=== PATIENT | male | born 1985 | race Caucasian/White ===

== ENCOUNTER 2018-02-06 11:50 | Emergency (ER) | payer OTHER ==
[2018-02-06 12:24] LABS: Absolute Monocytes 0.7 K/uL (0.1-1.3); Absolute Neutrophil 5.1 K/uL (1.8-8.0); Basophils % 0.7 % (0-1.3); Eosinophils % 0.9 % (0-4.4); Hematocrit 54.3 % (39.6-49.0); Lymphocytes % 25.8 % (15.3-44.8); MCH 29.8 pg (27.0-35.0); MPV 7.2 fL (7.6-11.3); Monocytes % 8.8 % (3.3-12.3); RBC Red Blood Cell Count 6.24 M/uL (4.33-5.43)
[2018-02-06] MEDS ORDERED: TAMSULOSIN 0.4 MG SR CAP ONE (12:25)
[2018-02-06] MEDS ORDERED: ONDANSETRON 4 MG/2 ML VIAL ONE (12:25)
[2018-02-06] MEDS ORDERED: KETOROLAC 30 MG/ML INJ ONE (12:25)
[2018-02-06] MEDS ORDERED: HYDROMORPHONE HCL 1 MG/ML INJ ONE (12:25)
[2018-02-06] MEDS ORDERED: NA CHLORIDE 0.9% 1,000 ML ONE ×2 (12:26→12:52)
[2018-02-06] MEDS ORDERED: CEFTRIAXONE/SWI 1gm 1 GM/10 ML SYR ONE (12:26)
--- NOTE | 2018-02-06 12:39 | RAD REPORT ---
EXAM DESCRIPTION: CT - Stone Protocol - 02/06/2018 12:30 pm CLINICAL HISTORY: Flank pain. Abd pain;Flank pain COMPARISON: Stone Protocol dated 06/27/2016 TECHNIQUE: Axial images were obtained without oral or IV contrast. Lack of contrast limits solid org an and vascular assessment. The [id number] spans the entirety of the system partially obscuring uppermost abdomen and lung bases. Coronal reformatted images were obtained and reviewed. All CT scans are performed using dose optimization technique as appropriate and may include automated exposure control or mA/KV adjustment according to patient size. FINDINGS: The lower lung mcbride are clear. Imaged portions of the liver and spleen show no suspicious findings on non-contrast imaging. The panc reas and adrenal glands are normal. No pathologic lymphadenopathy in the abdomen or pelvis. 4 mm stone is present mid left ureter resulting in mild left hydronephrosis. Punctate bilateral nephr olithiasis is present. No bowel obstruction, free air, free fluid or abscess. Appendectomy. 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 IMPRESSION: 4 mm stone mid left ureter resulting in mild left hydronephrosis. Punctate bilateral nephrolithiasis.
[2018-02-06] MEDS ORDERED: MEPERIDINE HCL 50 MG/ML AMP ONE (12:43)
[2018-02-06 12:46] LABS: Albumin 4.2 g/dL (3.4-5.0); Bilirubin Direct 0.3 mg/dL (0-0.2); Bilirubin Total 1.1 mg/dL (0.2-1.0); Potassium 4.1 mmol/L (3.5-5.1); Protein, Total 8.1 g/dL (6.4-8.2)
[2018-02-06] MEDS ORDERED: CIPROFLOXACIN 400mg IV 400 MG/200 ML BAG IV ONE (12:52)
[2018-02-06] MEDS ORDERED: MEPERIDINE HCL 25 MG/0.5 ML ONE (13:35)
--- NOTE | 2018-02-06 14:06 | EDPHYS ---
Physician Documentation [facility] Name: Jerry Toney Age: 33 yrs Sex: Male : 1985 Arrival Date: 02/06/2018 Time: 11:53 Bed 23 Private MD: ED Physician Maximino Alonso HPI: 02/06 12:00 This 33 yrs old Male presents to ER via Ambulatory with complaints of flank octaviano pain. 12:00 The patient complains of pain in the left mid back and right mid back. Location: left octaviano mid back and right mid back. Onset: The symptoms/episode began/occurred just prior to arrival, this morning. Modifying factors: The symptoms are alleviated by nothing. the symptoms are aggravated by nothing. The patient presents with pain and tenderness. The symptoms are located in the mid back area and left mid back. Associated signs and symptoms: Pertinent positives: nausea, vomiting. The problem was sustained from unknown cause. Modifying factors: The patient symptoms are alleviated by nothing, the patient symptoms are aggravated by nothing. Associated signs and symptoms: The patient has no apparent associated signs or symptoms. The patient has experienced similar episodes in the past, multiple times. Historical: - Allergies: 13:19 PENICILLINS; aj1 - PMHx: 13:19 Kidney stones; aj1 - Immunization history:: Adult Immunizations up to date. - Family history:: not pertinent. - Ebola Screening: : Patient denies travel to an Ebola-affected area in the 21 days before illness onset. ROS: 12:00 Constitutional: Negative for fever, chills, and weight loss, Eyes: Negative for injury, octaviano pain, redness, and discharge, ENT: Negative for injury, pain, and discharge, Neck: Negative for injury, pain, and swelling, Cardiovascular: Negative for chest pain, palpitations, and edema, Respiratory: Negative for shortness of breath, cough, wheezing, and pleuritic chest pain, Abdomen/GI: Negative for abdominal pain, nausea, vomiting, diarrhea, and constipation, : Negative for injury, bleeding, discharge, and swelling, MS/Extremity: Negative for injury and deformity, Skin: Negative for injury, rash, and discoloration, Neuro: Negative for headache, weakness, numbness, tingling, and seizure, Psych: Negative for depression, anxiety, suicide ideation, homicidal ideation, and hallucinations, Allergy/Immunology: Negative for hives, rash, and allergies, Endocrine: Negative for neck swelling, polydipsia, polyuria, polyphagia, and marked weight changes, Hematologic/Lymphatic: Negative for swollen nodes, abnormal bleeding, and unusual bruising. 12:00 Back: Positive for pain at rest, flank pain, bilaterally. Exam: 12:00 Constitutional: This is a well developed, well nourished patient who is awake, alert, octaviano and in no acute distress. Head/Face: Normocephalic, atraumatic. Eyes: Pupils equal round and reactive to light, extra-ocular motions intact. Lids and lashes normal. Conjunctiva and sclera are non-icteric and not injected. Cornea within normal limits. Periorbital areas with no swelling, redness, or edema. ENT: Nares patent. No nasal discharge, no septal abnormalities noted. Tympanic membranes are normal and external auditory canals are clear. Oropharynx with no redness, swelling, or masses, exudates, or evidence of obstruction, uvula midline. Mucous membranes moist. Neck: Trachea midline, no thyromegaly or masses palpated, and no cervical lymphadenopathy. Supple, full range of motion without nuchal rigidity, or vertebral point tenderness. No Meningismus. Chest/axilla: Normal chest wall appearance and motion. Nontender with no deformity. No lesions are appreciated. Cardiovascular: Regular rate and rhythm with a normal S1 and S2. No gallops, murmurs, or rubs. Normal PMI, no JVD. No pulse deficits. Respiratory: Lungs have equal breath sounds bilaterally, clear to auscultation and percussion. No rales, rhonchi or wheezes noted. No increased work of breathing, no retractions or nasal flaring. Abdomen/GI: Soft, non-tender, with normal bowel sounds. No distension or tympany. No guarding or rebound. No evidence of tenderness throughout. Skin: Warm, dry with normal turgor. Normal color with no rashes, no lesions, and no evidence of cellulitis. MS/ Extremity: Pulses equal, no cyanosis. Neurovascular intact. Full, normal range of motion. Neuro: Awake and alert, GCS 15, oriented to person, place, time, and situation. Cranial nerves II-XII grossly intact. Motor strength 5/5 in all extremities. Sensory grossly intact. Cerebellar exam normal. Normal gait. Psych: Awake, alert, with orientation to person, place and time. Behavior, mood, and affect are within normal limits. 12:00 Back: pain, that is mild, that is moderate, of the left mid back and right mid back, ROM is normal, normal spinal alignment noted, CVA tenderness, that is moderate, is noted bilaterally. Vital Signs: 12:35 BP 150 / 89; Pulse 66; Resp 22; Pulse Ox 97% on R/A; aj1 13:30 BP 167 / 89; Pulse 67; Resp 22; Pulse Ox 97% on R/A; aj1 13:56 BP 131 / 87; Pulse 64; Resp 18; Pulse Ox 96% on R/A; aj1 MDM: 11:56 Patient medically screened. [facility] 12:03 Data reviewed: vital signs, nurses notes, lab test result(s), radiologic studies, CT octaviaon scan. 02/06 11:59 Order name: Basic Metabolic Panel; Complete Time: 13:27 [facility] 02/06 11:59 Order name: CBC with Diff; Complete Time: 12:42 [facility] 02/06 11:59 Order name: Creatinine for Radiology; Complete Time: 13:27 [facility] 02/06 11:59 Order name: Hepatic Function; Complete Time: 13:27 [facility] 02/06 11:59 Order name: Lipase; Complete Time: 13:27 [facility] 02/06 11:59 Order name: CT Stone Protocol; Complete Time: 12:42 [facility] 02/06 11:59 Order name: IV Saline Lock; Complete Time: 12:11 [facility] 02/06 11:59 Order name: Labs collected and sent; Complete Time: 12:11 [facility] Administered Medications: 12:25 Drug: TORadol 30 mg Route: IVP; Site: right antecubital; iw 12:35 Follow up: Response: No adverse reaction; Pain is unchanged, physician notified aj1 12:25 Drug: Dilaudid 1 mg Route: IVP; Site: right antecubital; iw 12:35 Follow up: Response: No adverse reaction; Pain is unchanged, physician notified aj1 12:25 Drug: Zofran 4 mg Route: IVP; Site: right antecubital; iw 12:35 Follow up: Response: No adverse reaction aj1 12:35 Drug: NS 0.9% 1000 ml Route: IV; Rate: 1 bolus; Site: right antecubital; aj1 14:30 Follow up: IV Status: Completed infusion; IV Intake: 1000ml aj1 12:40 Drug: Flomax 0.4 mg Route: PO; aj1 13:54 Follow up: Response: No adverse reaction aj1 12:40 Drug: Demerol 50 mg Route: IVP; Site: right antecubital; aj1 12:54 Follow up: Response: No adverse reaction; Pain is decreased aj1 12:42 Not Given (Duplicate Order): Rocephin - (cefTRIAXone) 1 grams IVPB once over 30 mins; octaviano (mix in 50 mL NS) 12:45 Drug: Cipro 400 mg Volume: 200 ml; Route: IVPB; Infused Over: 60 mins; Site: right aj1 antecubital; 13:54 Follow up: Response: No adverse reaction; IV Status: Completed infusion; IV Intake: aj1 200ml 12:45 Drug: NS 0.9% 1000 ml Route: IV; Rate: 1 bolus; Site: right antecubital; aj1 14:30 Follow up: IV Status: Completed infusion; IV Intake: 1000ml aj1 13:31 Drug: Demerol 25 mg Route: IVP; Site: right antecubital; aj1 13:54 Follow up: Response: No adverse reaction; Pain is decreased aj1 Disposition: 02/06/18 14:05 Discharged to Home. Impression: Hydronephrosis with renal and ureteral calculous obstruction - 4 mm left mid ureter calculi. - Condition is Stable. - Discharge Instructions: Kidney Stones, Kidney Stones, [id number], Hydronephrosis, Dietary Guidelines to Help Prevent Kidney Stones. - Prescriptions for Tylenol- Codeine #3 300-30 mg Oral Tablet - take 2 tablet by ORAL route every 6 hours As needed; 30 tablet. Zofran 4 mg Oral Tablet - take 1 tablet by ORAL route every 12 hours As needed; 20 tablet. Flomax 0.4 mg Oral Capsule, Sust. Release 24 hr - take 1 capsule by ORAL route once daily 1/2 hour following the same meal each day; 30 capsule. Cipro 500 mg Oral Tablet - take 1 tablet by ORAL route every 12 hours for 7 days; 14 tablet. - Medication Reconciliation Form, Thank You Letter, Antibiotic Education, Prescription Opioid Use form. - Follow up: Private Physician; When: 2 - 3 days; Reason: Recheck today's complaints, Continuance of care, Re-evaluation by your physician. Follow up: Segundo Burns; When: 2 - 3 days; Reason: Recheck today's complaints, Continuance of care, Re-evaluation by your physician. - Problem is new. - Symptoms have improved. Signatures: Dispatcher [employer] EDPetra Hartman RN RN aj1 Maximino Alonso MD MD cha Williams, Irene, RN RN iw Corrections: (The following items were deleted from the chart) 14:32 14:05 02/06/2018 14:05 Discharged to Home. Impression: Hydronephrosis with renal and aj1 ureteral calculous obstruction - 4 mm left mid ureter calculi. Condition is Stable. Discharge Instructions: Kidney Stones, Kidney Stones, Jaqa-[id number], Hydronephrosis, Dietary Guidelines to Help Prevent Kidney Stones. Prescriptions for Tylenol-Codeine #3 300-30 mg Oral Tablet - take 2 tablet by ORAL route every 6 hours As needed; 30 tablet, Zofran 4 mg Oral Tablet - take 1 tablet by ORAL route every 12 hours As needed; 20 tablet, Flomax 0.4 mg Oral Capsule, Sust. Release 24 hr - take 1 capsule by ORAL route once daily 1/2 hour following the same meal each day; 30 capsule, Cipro 500 mg Oral Tablet - take 1 tablet by ORAL route every 12 hours for 7 days; 14 tablet. and Forms are Medication Reconciliation Form, Thank You Letter, Antibiotic Education, Prescription Opioid Use. Follow up: Private Physician; When: 2 - 3 days; Reason: Recheck today's complaints, Continuance of care, Re-evaluation by your physician. Follow up: Segundo Burns; When: 2 - 3 days; Reason: Recheck today's complaints, Continuance of care, Re-evaluation by your physician. Problem is new. Symptoms have improved. octaviano
--- NOTE | 2018-02-06 14:06 | ER ---
Nurse's Notes [facility] Name: Jerry Toney Age: 33 yrs Sex: Male : 1985 Arrival Date: 02/06/2018 Time: 11:53 Bed 23 Private MD: Diagnosis: Hydronephrosis with renal and ureteral calculous obstruction-4 mm left mid ureter calculi Presentation: 02/06 11:57 Presenting complaint: Patient states: right sided flank pain. Transition of care: iw patient was not received from another setting of care. Onset of symptoms was February 06, 2018. Risk Assessment: Do you want to hurt yourself or someone else? Patient reports no desire to harm self or others. Initial Sepsis Screen: Does the patient meet any 2 criteria? No. Patient's initial sepsis screen is negative. Does the patient have a suspected source of infection? No. Patient's initial sepsis screen is negative. Care prior to arrival: None. 11:57 Method Of Arrival: Ambulatory iw 11:57 Acuity: JOVAN 3 iw Triage Assessment: 12:35 General: Appears uncomfortable. aj1 Historical: - Allergies: 13:19 PENICILLINS; aj1 - PMHx: 13:19 Kidney stones; aj1 - Immunization history:: Adult Immunizations up to date. - Family history:: not pertinent. - Ebola Screening: : Patient denies travel to an Ebola-affected area in the 21 days before illness onset. Screenin:35 Abuse screen: Denies threats or abuse. Denies injuries from another. Nutritional aj1 screening: No deficits noted. Tuberculosis screening: No symptoms or risk factors identified. 14:31 Fall Risk None identified. aj1 Assessment: 12:30 Reassessment: Pt in CT at this time. aj1 12:35 Reassessment: Patient returned to room from CT, restless, pain 10/10. Reports no pain aj1 relief from Dilaudid and Toradol. States that he does not want to take Dilaudid again, that it does not work for him. Notified Dr. Alonso. Order received. 12:35 General: Appears uncomfortable, Behavior is cooperative, restless. Pain: Complains of aj1 pain in mid back area Pain currently is 10 out of 10 on a pain scale. Neuro: Level of Consciousness is awake, alert, obeys commands. Cardiovascular: Patient's skin is warm and dry. Respiratory: Airway is patent Respiratory effort is even, unlabored, Respiratory pattern is regular, symmetrical. GI: No signs and/or symptoms were reported involving the gastrointestinal system. : Reports flank pain, history of kidney stones, states that this feels similar to previous episodes. EENT: No signs and/or symptoms were reported regarding the EENT system. Derm: No signs and/or symptoms reported regarding the dermatologic system. Skin is flushed. Musculoskeletal: No signs and/or symptoms reported regarding the musculoskeletal system. Circulation, motion, and sensation intact. 12:54 Reassessment: Patient states that the pain has started to ease up, is able to lay back aj1 into the bed. 13:30 Reassessment: Patient states that his pain is coming back. Appears restless, aj1 uncomfortable. States that he thinks the stone is moving because his pain has moved a little lower. Notified Dr. Alonso of patient complaint of pain. Order received. 13:52 Reassessment: Patient states that his pain has eased up a little bit, but he is still aj1 hurting. Appears uncomfortable. 14:30 Reassessment: Patient appears in no apparent distress at this time. No changes from aj1 previously documented assessment. Patient and/or family updated on plan of care and expected duration. Pain level reassessed. Patient is alert, oriented x 3, equal unlabored respirations, skin warm/dry/pink. Vital Signs: 12:35 BP 150 / 89; Pulse 66; Resp 22; Pulse Ox 97% on R/A; aj1 13:30 BP 167 / 89; Pulse 67; Resp 22; Pulse Ox 97% on R/A; aj1 13:56 BP 131 / 87; Pulse 64; Resp 18; Pulse Ox 96% on R/A; aj1 ED Course: 11:53 Patient arrived in ED. iw 11:56 Maximino Alonso MD is Attending Physician. octaviano 11:58 Triage completed. iw 12:05 Initial lab(s) drawn, by me, sent to lab. Inserted saline lock: 20 gauge in right jp3 antecubital area, using aseptic technique. Blood collected. 12:10 Basic Metabolic Panel Sent. jp3 12:10 CBC with Diff Sent. jp3 12:10 Creatinine for Radiology Sent. jp3 12:11 Hepatic Function Sent. jp3 12:11 Lipase Sent. jp3 12:11 Bed in low position. Call light in reach. Side rails up X 1. Pulse ox on. NIBP on. jp3 12:28 CT completed. Patient tolerated procedure well. Patient moved to CT via stretcher. sj Patient moved back from CT. 12:29 CT Stone Protocol In Process Unspecified. EDMS 12:30 Report received from Nayeli Meyers RN. aj1 12:35 No provider procedures requiring assistance completed. aj1 12:52 Petra Sigala RN is Primary Nurse. aj1 13:21 Arm band placed on. aj1 14:01 Segundo Burns MD is Referral Physician. octaviano 14:24 IV discontinued, intact, bleeding controlled, No redness/swelling at site. Pressure jp3 dressing applied. 14:31 IV discontinued, as documented above. aj1 Administered Medications: 12:25 Drug: TORadol 30 mg Route: IVP; Site: right antecubital; iw 12:35 Follow up: Response: No adverse reaction; Pain is unchanged, physician notified aj1 12:25 Drug: Dilaudid 1 mg Route: IVP; Site: right antecubital; iw 12:35 Follow up: Response: No adverse reaction; Pain is unchanged, physician notified aj1 12:25 Drug: Zofran 4 mg Route: IVP; Site: right antecubital; iw 12:35 Follow up: Response: No adverse reaction aj1 12:35 Drug: NS 0.9% 1000 ml Route: IV; Rate: 1 bolus; Site: right antecubital; aj1 14:30 Follow up: IV Status: Completed infusion; IV Intake: 1000ml aj1 12:40 Drug: Flomax 0.4 mg Route: PO; aj1 13:54 Follow up: Response: No adverse reaction aj1 12:40 Drug: Demerol 50 mg Route: IVP; Site: right antecubital; aj1 12:54 Follow up: Response: No adverse reaction; Pain is decreased aj1 12:42 Not Given (Duplicate Order): Rocephin - (cefTRIAXone) 1 grams IVPB once over 30 mins; octaviano (mix in 50 mL NS) 12:45 Drug: Cipro 400 mg Volume: 200 ml; Route: IVPB; Infused Over: 60 mins; Site: right aj1 antecubital; 13:54 Follow up: Response: No adverse reaction; IV Status: Completed infusion; IV Intake: aj1 200ml 12:45 Drug: NS 0.9% 1000 ml Route: IV; Rate: 1 bolus; Site: right antecubital; aj1 14:30 Follow up: IV Status: Completed infusion; IV Intake: 1000ml aj1 13:31 Drug: Demerol 25 mg Route: IVP; Site: right antecubital; aj1 13:54 Follow up: Response: No adverse reaction; Pain is decreased aj1 Intake: 13:54 IV: 200ml; Total: 200ml. aj1 14:30 IV: 1000ml; Total: 1200ml. aj1 14:30 IV: 1000ml; Total: 2200ml. aj1 Outcome: 14:05 Discharge ordered by MD. brumfield 14:31 Discharged to home ambulatory. aj1 14:31 Condition: good 14:31 Discharge instructions given to patient, Instructed on discharge instructions, follow up and referral plans. no drinking with medication, no driving heavy equipment, medication usage, Demonstrated understanding of instructions, follow-up care, medications, Prescriptions given X 4. 14:32 Patient left the ED. aj1 Signatures: Dispatcher [employer] EDMS Petra Sigala RN RN Maximino Abdul MD MD cha Jones, Jenelle Baker RN RN iw Pisarski, Jacob jp3
[2018-02-06 14:41] VITALS: BP 131/87; O2SAT 96
== END 2018-02-06 14:32 | disposition home or self-care (01) ==
LOC: ER 11:50
DX: N13.2 Hydronephrosis with renal and ureteral calculous obstruction (principal); Z88.0 Allergy status to penicillin
CPT/HCPCS: 36415; 74176; 76377; 80048; 80076; 83690; 85025; 96361; 96365; 96375; 99284; J0696; J0744; J1170; J2175; J2405; J7030

== ENCOUNTER 2024-05-16 02:05 | Inpatient (IN) | payer BC, OTHER ==
--- OUTSIDE RECORDS SUMMARY | 2024-05-16 02:08 | XMS REPORT | Continuity of Care Document ---
Author Name Unknown Address [address] [place] [address] [address] [place] [address] [facility] thconnect Address [address] [facility] 1 [address] [place] [address] Care Team Providers Care Alodize Machine Helper Name Role Phone Barbara Attending Clinician Becki Jimenez Admitting Clinician Becki schmitz Payers Payer Name Policy Type Policy Number Effective Date Expirati on Date Source [place] [id number] 2021 00:00:00 Problems Condition Name Condition Details Condition Category Status Onset Date Resolution Date Last Treatment Date Treating Clinician Comments Source Pes anserinus bursitis of left knee Pes Anserinus Bursitis of Left Knee Problem Active 1-15 00:00: 00 [facility] Sprain of medial collateral ligament of left knee joint Sprain of Medial Collateral Ligament of Left Knee Joint Problem Active 1-04 00:00: 00 [facility] Allergies, Adverse Reactions, Alerts Allergy Name Allergy Type Status Severity Reaction(s) Onset Date Inactive Date Treating Clinician Comments Source PENICILL INS Allergy to substanc e Active [facility] Social History Smoking Status Start Date Stop Date Source Former Smoker [facility] Medications Ordered Medication Name Filled Medication Name Start Date Stop Date Current Medication? Ordering Clinician Indication Dosage Frequency Signature (SIG) Comments Components Source atorvastati n 10 mg tablet TAKE ONE (1) TABLET(S) BY MOUTH ONCE A DAY. atorvastati n 10 mg tablet TAKE ONE (1) TABLET(S) BY MOUTH ONCE A DAY. No atorvastat in 10 mg tablet TAKE ONE (1) TABLET(S) BY MOUTH ONCE A DAY. [facility] diazepam 10 mg tablet TAKE ONE (1) TABLET(S) BY MOUTH TWICE A DAY NEEDED. diazepam 10 mg tablet TAKE ONE (1) TABLET(S) BY MOUTH TWICE A DAY NEEDED. No diazepam 10 mg tablet TAKE ONE (1) TABLET(S) BY MOUTH TWICE A DAY NEEDED. [facility] folic acid 1 mg tablet TAKE ONE (1) TABLET(S) BY MOUTH DAILY. folic acid 1 mg tablet TAKE ONE (1) TABLET(S) BY MOUTH DAILY. No folic acid 1 mg tablet TAKE ONE (1) TABLET(S) BY MOUTH DAILY. [facility] lisinopril 20 mg-hydrochl orothiazide 12.5 mg tablet TAKE TWO (2) TABLET(S) BY MOUTH ONCE A DAY. lisinopril 20 mg-hydrochl orothiazide 12.5 mg tablet TAKE TWO (2) TABLET(S) BY MOUTH ONCE A DAY. No lisinopril 20 mg-hydroch lorothiazi de 12.5 mg tablet TAKE TWO (2) TABLET(S) BY MOUTH ONCE A DAY. [facility] Mobic 15 mg tablet Take 1 tablet every day by oral route with meal(s). Take 2 tab on first day, then 1 tab daily Mobic 15 mg tablet Take 1 tablet every day by oral route with meal(s). Take 2 tab on first day, then 1 tab daily No 1 Q1D Mobic 15 mg tablet Take 1 tablet every day by oral route with meal(s). Take 2 tab on first day, then 1 tab daily [facility] testosteron e cypionate 200 mg/mL intramuscul ar oil INJECT ONE (1) ML(S) INTO THE MUSCLE ONCE A MONTH. testosteron e cypionate 200 mg/mL intramuscul ar oil INJECT ONE (1) ML(S) INTO THE MUSCLE ONCE A MONTH. No testostero ne cypionate 200 mg/mL intramuscu lar oil INJECT ONE (1) ML(S) INTO THE MUSCLE ONCE A MONTH. [facility] tramadol 50 mg tablet TAKE ONE (1) TABLET(S) BY MOUTH EVERY SIX HOURS NEEDED. tramadol 50 mg tablet TAKE ONE (1) TABLET(S) BY MOUTH EVERY SIX HOURS NEEDED. No tramadol 50 mg tablet TAKE ONE (1) TABLET(S) BY MOUTH EVERY SIX HOURS NEEDED. [facility] acetaminoph en 300 mg-codeine 30 mg tablet Take 1 tablet every 8 hours by oral route with meal(s). acetaminoph en 300 mg-codeine 30 mg tablet Take 1 tablet every 8 hours by oral route with meal(s). No 1 Q8H acetaminop hen 300 mg-codeine 30 mg tablet Take 1 tablet every 8 hours by oral route with meal(s). [facility] atorvastati n 10 mg tablet TAKE ONE (1) TABLET(S) BY MOUTH ONCE A DAY. atorvastati n 10 mg tablet TAKE ONE (1) TABLET(S) BY MOUTH ONCE A DAY. No atorvastat in 10 mg tablet TAKE ONE (1) TABLET(S) BY MOUTH ONCE A DAY. [facility] diazepam 10 mg tablet TAKE ONE (1) TABLET(S) BY MOUTH TWICE A DAY NEEDED. diazepam 10 mg tablet TAKE ONE (1) TABLET(S) BY MOUTH TWICE A DAY NEEDED. No diazepam 10 mg tablet TAKE ONE (1) TABLET(S) BY MOUTH TWICE A DAY NEEDED. [facility] diclofenac sodium 75 mg tablet,[place] yed release TAKE ONE (1) TABLET(S) BY MOUTH TWICE A DAY. diclofenac sodium 75 mg tablet,[place] yed release TAKE ONE (1) TABLET(S) BY MOUTH TWICE A DAY. No diclofenac sodium 75 mg tablet,del ayed release TAKE ONE (1) TABLET(S) BY MOUTH TWICE A DAY. [facility] folic acid 1 mg tablet TAKE ONE (1) TABLET(S) BY MOUTH DAILY. folic acid 1 mg tablet TAKE ONE (1) TABLET(S) BY MOUTH DAILY. No folic acid 1 mg tablet TAKE ONE (1) TABLET(S) BY MOUTH DAILY. [facility] hydrocodone 10 mg-acetamin ophen 325 mg tablet TAKE ONE (1) TABLET(S) BY MOUTH EVERY SIX HOURS NEEDED FOR PAIN. hydrocodone 10 mg-acetamin ophen 325 mg tablet TAKE ONE (1) TABLET(S) BY MOUTH EVERY SIX HOURS NEEDED FOR PAIN. No hydrocodon e 10 mg-acetami nophen 325 mg tablet TAKE ONE (1) TABLET(S) BY MOUTH EVERY SIX HOURS NEEDED FOR PAIN. [facility] lisinopril 20 mg-hydrochl orothiazide 12.5 mg tablet TAKE TWO (2) TABLET(S) BY MOUTH ONCE A DAY. lisinopril 20 mg-hydrochl orothiazide 12.5 mg tablet TAKE TWO (2) TABLET(S) BY MOUTH ONCE A DAY. No lisinopril 20 mg-hydroch lorothiazi de 12.5 mg tablet TAKE TWO (2) TABLET(S) BY MOUTH ONCE A DAY. [facility] meloxicam 15 mg tablet TAKE ONE (1) TABLET(S) BY MOUTH ONCE A DAY WITH MEALS. meloxicam 15 mg tablet TAKE ONE (1) TABLET(S) BY MOUTH ONCE A DAY WITH MEALS. No meloxicam 15 mg tablet TAKE ONE (1) TABLET(S) BY MOUTH ONCE A DAY WITH MEALS. [facility] prednisone 10 mg tablet Take 1 tablet 3 times a day by oral route with meal(s) for 10 days. prednisone 10 mg tablet Take 1 tablet 3 times a day by oral route with meal(s) for 10 days. No 1 TID prednisone 10 mg tablet Take 1 tablet 3 times a day by oral route with meal(s) for 10 days. [facility] testosteron e cypionate 200 mg/mL intramuscul ar oil INJECT ONE (1) ML(S) INTO THE MUSCLE ONCE A MONTH. testosteron e cypionate 200 mg/mL intramuscul ar oil INJECT ONE (1) ML(S) INTO THE MUSCLE ONCE A MONTH. No testostero ne cypionate 200 mg/mL intramuscu lar oil INJECT ONE (1) ML(S) INTO THE MUSCLE ONCE A MONTH. [facility] tramadol 50 mg tablet TAKE ONE (1) TABLET(S) BY MOUTH EVERY SIX HOURS NEEDED. tramadol 50 mg tablet TAKE ONE (1) TABLET(S) BY MOUTH EVERY SIX HOURS NEEDED. No tramadol 50 mg tablet TAKE ONE (1) TABLET(S) BY MOUTH EVERY SIX HOURS NEEDED. [facility] acetaminoph en 300 mg-codeine 30 mg tablet TAKE ONE (1) TABLET(S) BY MOUTH EVERY 8 HOURS WITH MEAL(S). acetaminoph en 300 mg-codeine 30 mg tablet TAKE ONE (1) TABLET(S) BY MOUTH EVERY 8 HOURS WITH MEAL(S). No acetaminop hen 300 mg-codeine 30 mg tablet TAKE ONE (1) TABLET(S) BY MOUTH EVERY 8 HOURS WITH MEAL(S). [facility] atorvastati n 10 mg tablet TAKE ONE (1) TABLET(S) BY MOUTH ONCE A DAY. atorvastati n 10 mg tablet TAKE ONE (1) TABLET(S) BY MOUTH ONCE A DAY. No atorvastat in 10 mg tablet TAKE ONE (1) TABLET(S) BY MOUTH ONCE A DAY. [facility] diazepam 10 mg tablet TAKE ONE (1) TABLET(S) BY MOUTH TWICE A DAY NEEDED. diazepam 10 mg tablet TAKE ONE (1) TABLET(S) BY MOUTH TWICE A DAY NEEDED. No diazepam 10 mg tablet TAKE ONE (1) TABLET(S) BY MOUTH TWICE A DAY NEEDED. [facility] diclofenac sodium 75 mg tablet,[place] yed release TAKE ONE (1) TABLET(S) BY MOUTH TWICE A DAY. diclofenac sodium 75 mg tablet,[place] yed release TAKE ONE (1) TABLET(S) BY MOUTH TWICE A DAY. No diclofenac sodium 75 mg tablet,del ayed release TAKE ONE (1) TABLET(S) BY MOUTH TWICE A DAY. [facility] folic acid 1 mg tablet TAKE ONE (1) TABLET(S) BY MOUTH DAILY. folic acid 1 mg tablet TAKE ONE (1) TABLET(S) BY MOUTH DAILY. No folic acid 1 mg tablet TAKE ONE (1) TABLET(S) BY MOUTH DAILY. [facility] hydrocodone 10 mg-acetamin ophen 325 mg tablet TAKE ONE (1) TABLET(S) BY MOUTH EVERY SIX HOURS NEEDED FOR PAIN. hydrocodone 10 mg-acetamin ophen 325 mg tablet TAKE ONE (1) TABLET(S) BY MOUTH EVERY SIX HOURS NEEDED FOR PAIN. No hydrocodon e 10 mg-acetami nophen 325 mg tablet TAKE ONE (1) TABLET(S) BY MOUTH EVERY SIX HOURS NEEDED FOR PAIN. [facility] lisinopril 20 mg-hydrochl orothiazide 12.5 mg tablet TAKE TWO (2) TABLET(S) BY MOUTH ONCE A DAY. lisinopril 20 mg-hydrochl orothiazide 12.5 mg tablet TAKE TWO (2) TABLET(S) BY MOUTH ONCE A DAY. No lisinopril 20 mg-hydroch lorothiazi de 12.5 mg tablet TAKE TWO (2) TABLET(S) BY MOUTH ONCE A DAY. [facility] meloxicam 15 mg tablet TAKE ONE (1) TABLET(S) BY MOUTH ONCE A DAY WITH MEALS. meloxicam 15 mg tablet TAKE ONE (1) TABLET(S) BY MOUTH ONCE A DAY WITH MEALS. No meloxicam 15 mg tablet TAKE ONE (1) TABLET(S) BY MOUTH ONCE A DAY WITH MEALS. [facility] prednisone 10 mg tablet TAKE ONE (1) TABLET(S) BY MOUTH 3 TIMES A DAY WITH MEAL(S). prednisone 10 mg tablet TAKE ONE (1) TABLET(S) BY MOUTH 3 TIMES A DAY WITH MEAL(S). No prednisone 10 mg tablet TAKE ONE (1) TABLET(S) BY MOUTH 3 TIMES A DAY WITH MEAL(S). [facility] testosteron e cypionate 200 mg/mL intramuscul ar oil INJECT ONE (1) ML(S) INTO THE MUSCLE ONCE A MONTH. testosteron e cypionate 200 mg/mL intramuscul ar oil INJECT ONE (1) ML(S) INTO THE MUSCLE ONCE A MONTH. No testostero ne cypionate 200 mg/mL intramuscu lar oil INJECT ONE (1) ML(S) INTO THE MUSCLE ONCE A MONTH. [facility] tramadol 50 mg tablet TAKE ONE (1) TABLET(S) BY MOUTH EVERY SIX HOURS NEEDED. tramadol 50 mg tablet TAKE ONE (1) TABLET(S) BY MOUTH EVERY SIX HOURS NEEDED. No tramadol 50 mg tablet TAKE ONE (1) TABLET(S) BY MOUTH EVERY SIX HOURS NEEDED. [facility] Procedures Procedure Date / Time Performed Performing Clinicia n Source MR, arthrogram, knee 2023-04-13 00:00:00 [facility] Appendectomy [facility] Hand Surgery [facility] Encounters Start Date/Time End Date/Time Encounter Type Admission Type Attending Clinicians Care Facility Care Department Encounter ID Source 2023-05-05 00:00:00 2023-05-05 00:00:00 Mariano Das MD: [id number] [place] [address] , Ph. [phone] [facility] [place] [facility] [id number] [facility] 2023-05-02 00:00:00 2023-05-02 00:00:00 Outpatient EULOGIO_Graciela Horton [facility] [id number] [facility] 2023-04-25 00:00:00 2023-04-25 00:00:00 Outpatient Suzi Horton [facility] [id number] [facility] 2023-04-24 00:00:00 2023-04-24 00:00:00 Outpatient Suzi Horton [facility] [id number] [facility] 2023-04-24 00:00:00 2023-04-24 00:00:00 Mariano Das MD: [id number] [place] [address] , Ph. [phone] [facility] [place] [facility] [id number] [facility] 2023-04-20 00:00:00 2023-04-20 00:00:00 Outpatient [facility]OG_Graciela Horton [facility] [id number] [facility] 2023-04-13 00:00:00 2023-04-13 00:00:00 Outpatient Suzi Horton [facility] [id number] [facility] 2023-04-13 00:00:00 2023-04-13 00:00:00 Mariano Das MD: [id number] [facility] [place] [address] , Ph. [phone] [facility] [place] [facility] [id number] [facility] 2023-04-12 00:00:00 2023-04-12 00:00:00 Outpatient FOG_Graciela Horton [facility] [id number] [facility] 2023-04-04 00:00:00 2023-04-04 00:00:00 Outpatient [facility]OG_Graciela Horton [facility] [id number] [facility] 2023-03-30 00:00:00 2023-03-30 00:00:00 Outpatient Suzi Horton [facility] [id number] [facility]
[2024-05-16] MEDS ORDERED: HYDROMORPHONE HCL 1 MG/ML INJ ONE (02:09)
[2024-05-16] MEDS ORDERED: ONDANSETRON 4 MG/2 ML VIAL ONE ×4 (02:09→15:22)
[2024-05-16] MEDS ORDERED: FENTANYL CITR 100 MCG/2 ML ONE ×3 (02:34→14:21)
[2024-05-16] MEDS ORDERED: FAMOTIDINE 20 MG/2 ML VIAL IV ONE (02:35)
[2024-05-16 02:46] LABS: Absolute Basophils 0.1 K/uL (0-0.5); Absolute Eosinophils 0.1 K/uL (0-0.5); Absolute Lymphocytes (CBC) 3.1 K/uL (0.7-4.9); Absolute Monocytes 1.1 K/uL (0.1-1.3); Absolute Neutrophil 4.2 K/uL (1.8-8.0); Basophils % 1.2 % (0-1.3); Eosinophils % 0.9 % (0-4.4); Hematocrit 49.1 % (39.6-49.0); Hemoglobin 17.5 g/dL (13.6-17.9); Lymphocytes % 36.2 % (15.3-44.8); MCH 31.2 pg (27.0-35.0); MCHC 35.7 g/dL (32.0-36.0); MCV 87.5 fL (80-100); MPV 7.2 fL (7.6-11.3); Monocytes % 12.6 % (3.3-12.3); Neutrophils % 49.1 % (41.7-73.7); Platelets 274 thou/uL (152-406); RBC Red Blood Cell Count 5.61 M/uL (4.33-5.43)
[2024-05-16 03:08] LABS: PT Prothrombin Time 10.8 SECONDS (9.4-12.5); Protime INR 1.03
[2024-05-16 03:13] LABS: Albumin 4.6 g/dL (3.4-5.0); Albumin/Globulin Ratio 1.2 (1.1-1.8); Anion Gap 9.6 mEq/L (5.0-15.0); Bilirubin Direct 0.3 mg/dL (0-0.2); Bilirubin Indirect, Calculated 0.6 mg/dL (0.2-0.8); Bilirubin Total 0.9 mg/dL (0.2-1.0); Protein, Total 8.6 g/dL (6.4-8.2); Troponin High Sensitivity 5.7 pg/mL (<58.9)
[2024-05-16 03:15] LABS: Potassium 2.6 mEq/L (3.5-5.1)
[2024-05-16] MEDS ORDERED: PROMETHAZINE INJ 25 MG/ML AMP ONE (03:53)
[2024-05-16] MEDS ORDERED: CIPROFLOXACIN 400mg IV 400 MG/200 ML BAG IV ONE (05:31)
[2024-05-16] MEDS ORDERED: METRONIDAZOLE 500mg IVPB 500 MG/100 ML BAG IV ONE ×2 (05:31→14:50)
[2024-05-16] MEDS ORDERED: MORPHINE 4 MG/ML SYR ONE ×3 (05:41→13:47)
--- NOTE | 2024-05-16 05:41 | RAD REPORT ---
EXAM: XR Chest, 1 View CLINICAL HISTORY: The patient is 39 years old and is Male; CHEST PAIN TECHNIQUE: Frontal view of the chest. COMPARISON: No relevant prior studies available. FINDINGS: Lungs: Unremarkable. No consolidation. Pleural space: Unremarkable. No pneumothorax. Heart: Unremarkable. Mediastinum: Unremarkable. Normal mediastinal contour. Bones/joints: No acute findings. IMPRESSION: No acute findings in the chest. Electronically signed by: Maximus Rogers MD 05/16/2024 04:[address] [facility] 8 Due to temporary technical issues with the PACS/[employer] reporting system, reports are being abdirashid d by the in-house radiologist without review as a courtesy to ensure prompt reporting the interpreting radiologist is fully responsible for the content of the report. Transcribed Date/Time: 05/16/2024 5:41 AM
--- NOTE | 2024-05-16 05:51 | RAD REPORT ---
CT CHEST ABDOMEN PELVIS ANGIOGRAPHY WITH IV CONTRAST CLINICAL INDICATIONS: Chest pain COMPARISON: None TECHNIQUE: CT images of the chest, abdomen and pelvis were obtained during arterial phase following a dministration of intravenous contrast. Multiplanar and MIP reformats were provided. Dose lowering techniques such as automated exposure control, iterative reconstruction, and mA and/or kV adjustment for patient size was utilized for this examination. CHEST FINDINGS: LOWER NECK: Unremarkable. AIRWAYS: Trachea and mainstem bronchi are patent. LUNGS/PLEURA: Lungs are clear. No focal air space consolidation. No discrete mass or nodules. No pleu ral effusions or pneumothorax. VASCULATURE: No evidence of pulmonary intraluminal filling defects. Classic three-vessel branching pattern of left aortic arch. No evidence of thoracic aortic aneurysm or dissection. 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 No flow-limiting steno sis for the major branching vessels. MEDIASTINUM/NODES: No pathologic adenopathy. HEART: Normal heart size. No pericardial effusion. CHEST WALL: Unremarkable. BONES: Unremarkable. ABDOMEN/PELVIS FINDINGS: LIVER: Unremarkable. BILIARY: Gallbladder is distended. No radiopaque gallstones. No biliary ductal dilatation. No pericho lecystic fluid. PANCREAS: Unremarkable. SPLEEN: Mildly enlarged, measuring 15.0 cm craniocaudally. ADRENALS: Unremarkable. KIDNEYS/URETERS: 3 mm nonobstructive stone at upper pole of right kidney. 4 mm nonobstructive stone a t lower pole of left kidney. No hydroureteronephrosis. Symmetrical nephrogram without perfusion defect. No suspicious lesion. STOMACH: Unremarkable. BOWEL: Unremarkable. APPENDIX: Probably surgically absent. MESENTERY/PERITONEUM: Unremarkable. RETROPERITONEUM: No adenopathy. URINARY BLADDER: Unremarkable. REPRODUCTIVE: Prostate is mildly enlarged. VASCULAR: No aneurysm or dissection. No flow-limiting stenosis for major branching vessels. ABDOMINAL/PELVIC WALL: Unremarkable. BONES: No acute findings. No compression deformity, nor osteolytic or sclerotic lesion. 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 IMPRESSION: 1. No aortic aneurysm or dissection. 2. No acute inflammatory process in the chest, abdomen and pelvis. 3. Nonobstructive bilateral nephrolithiasis. 4. Mild splenomegaly. Electronically signed by: Lisandra García MD 05/16/2024 04:47 AM [facility] Due to temporary technical issues with the PACS/[employer] reporting system, reports are being abdirashid d by the in-house radiologist without review as a courtesy to ensure prompt reporting the interpreting radiologist is fully responsible for the content of the report. Transcribed Date/Time: 05/16/2024 5:51 AM
--- NOTE | 2024-05-16 05:56 | EDPHYS ---
Physician Documentation [facility] Name: Jerry Toney Age: 39 yrs Sex: Male : 1985 Arrival Date: 05/16/2024 Time: 02:05 Bed 9 Private MD: ED Physician Yobany Garcia HPI: 05/16 02:19 This 39 yrs old Male presents to ER via Wheelchair with complaints of chest pain. rn 02:19 The patient or guardian reports chest pain that is located primarily in the substernal rn area. Onset: 2 hour(s) ago. The pain radiates to The chest pain is described as squeezing. Duration: The patient or guardian reports a single episode. Modifying factors: The symptoms are alleviated by nothing. the symptoms are aggravated by nothing. Severity of pain: At its worst the pain was moderate in the emergency department the pain is unchanged. The patient has not experienced similar symptoms in the past. 02:19 Patient reports substernal chest pain that radiates straight to the back, squeezing, rn associated with nausea. Denies abdominal pain. Tried antacids at home and did not help.. Historical: - Allergies: 02:16 PENICILLINS; lg3 - Home Meds: 02:16 Flomax 0.4 mg Oral cp24 1 cap once daily [Active]; Lisinopril Oral [Active]; unknown lg3 high cholesterol med [Active]; - PMHx: 02:16 Kidney stones; Hypertensive disorder; Hypercholesterolemia; lg3 - PSHx: 02:16 Appendectomy; Lithotripsy; lg3 - Immunization history:: Adult Immunizations up to date. - Infectious Disease History:: Denies. - Social history:: Smoking status: Patient denies any tobacco usage or history of. Patient uses alcohol, occasionally. Patient/guardian denies using IV drugs. - Family history:: not pertinent. - Hospitalizations: : No recent hospitalization is reported. ROS: 02:21 Constitutional: Negative for fever, chills, and weight loss, Cardiovascular: Positive rn for chest pain Respiratory: Negative for shortness of breath, cough, wheezing, and pleuritic chest pain, Abdomen/GI: Negative for abdominal pain, positive for nausea Back: Positive for mid back pain MS/Extremity: Negative for injury and deformity, Skin: Negative for injury, rash, and discoloration, Neuro: Negative for headache, weakness, numbness, tingling, and seizure, Exam: 02:21 Constitutional: This is a well developed, well nourished patient who is awake, alert, rn appears uncomfortable Cardiovascular: Regular rate and rhythm. No pulse deficits. Respiratory: Mild tachypnea Abdomen/GI: Soft, nontender, no peritoneal signs MS/ Extremity: Pulses equal, no cyanosis. Neuro: Awake and alert, GCS 15 02:33 ECG was reviewed by the Attending Physician. rn Vital Signs: 02:15 BP 158 / 103; Pulse 84; Resp 19 S; Temp 98.1(O); Pulse Ox 100% on 2 lpm NC; Weight lg3 95.25 kg (R); Height 5 ft. 11 in. (R); Pain 10/10; 02:45 BP 142 / 84; Pulse 80; Resp 23; vk 03:30 BP 126 / 67; Pulse 63; Resp 11; Pulse Ox 100% on R/A; rv1 05:03 BP 136 / 80; Pulse 60; Resp 15 S; Pulse Ox 100% on 2 lpm NC; lg3 02:15 Body Mass Index 29.29 (95.25 kg, 180.34 cm) lg3 02:15 Pain Scale: Adult lg3 MDM: 02:08 Medical Screening Exam initiated rn 05:48 Differential diagnosis: acute myocardial infarction, acute pericarditis, anxiety, rn cholecystitis, Cholelithiasis costochondritis, esophagitis, gastritis, gastroesophageal reflux disease (GERD), pancreatitis, peptic ulcer disease, pericarditis, pneumonia, pneumothorax. Data reviewed: vital signs, nurses notes, lab test result(s), EKG, radiologic studies, CT scan, ultrasound, and as a result, I will admit patient. Consideration of Admission/Observation Patient was admitted/placed on observation. Escalation of care including admission/observation considered. Counseling: I had a detailed discussion with the patient and/or guardian regarding the historical points, exam findings, and any diagnostic results supporting the discharge/admit diagnosis, lab results, radiology results, the need for further work-up and treatment in the hospital. Response to treatment: the patient's symptoms have markedly improved after treatment, and as a result, I will admit patient. ED course: Troponin negative, ECG unremarkable without ischemia. Imaging shows distended gallbladder with sludge and slight thickening on the ultrasound. Given extreme epigastric and chest pain could be acalculous cholecystitis. Antibiotics ordered. Pain improved with multiple rounds of fentanyl and morphine. Patient with a history of kidney stones but is not actively passing 1. Will admit to hospitalist service for GI and surgical consultation as could also be gastritis and esophagitis.. 05/16 02:08 Order name: Basic Metabolic Panel; Complete Time: 03:18 rn 05/16 02:08 Order name: CBC with Diff; Complete Time: 03:18 rn 05/16 02:08 Order name: LFT's; Complete Time: 03:18 rn 05/16 02:08 Order name: NT PRO-BNP; Complete Time: 03:18 rn 05/16 02:08 Order name: PT-INR; Complete Time: 03:18 rn 05/16 02:08 Order name: Troponin HS; Complete Time: 03:18 rn 05/16 06:57 Order name: CREATININE WHOLE BLOOD; Complete Time: 07:40 EDMS 05/16 07:36 Order name: Urinalysis w/ reflexes EDMS 05/16 07:36 Order name: CBC with Automated Diff EDMS / 07:36 Order name: CBC with Automated Diff EDMS / 07:36 Order name: CBC with Automated Diff EDMS 05/16 07:36 Order name: CBC with Automated Diff EDMS / 07:36 Order name: Comprehensive Metabolic Panel EDMS / 07:36 Order name: Comprehensive Metabolic Panel EDMS / 07:36 Order name: Comprehensive Metabolic Panel EDMS 05/16 07:36 Order name: Comprehensive Metabolic Panel EDMS / 07:36 Order name: Magnesium EDMS / 07:36 Order name: Magnesium EDMS / 07:36 Order name: Magnesium EDMS / 07:36 Order name: Magnesium EDMS / 07:36 Order name: Troponin High Sensitivity EDMS / 07:36 Order name: Troponin High Sensitivity EDMS / 07:36 Order name: Troponin High Sensitivity EDMS / 07:36 Order name: Troponin High Sensitivity EDMS / 13:27 Order name: Magnesium EDMS / 15:12 Order name: Basic Metabolic Panel EDMS 05/16 15:12 Order name: Magnesium EDMS 05/16 02:08 Order name: XRAY Chest (1 view); Complete Time: 07:40 rn 05/16 02:08 Order name: CT Aorta for Dissection; Complete Time: 07:40 rn 05/16 03:18 Order name: US Abdomen Limited rn 05/16 02:08 Order name: EKG; Complete Time: 02:09 rn 05/16 07:35 Order name: Dr Jackelin Childers EDMS 05/16 02:08 Order name: Cardiac monitoring; Complete Time: 02:15 rn 05/16 02:08 Order name: EKG - Nurse/Tech; Complete Time: 02:15 rn 05/16 02:08 Order name: IV Saline Lock; Complete Time: 02:15 rn 05/16 02:08 Order name: Labs collected and sent; Complete Time: 02:15 rn 05/16 02:08 Order name: O2 Per Protocol; Complete Time: 02:15 rn 05/16 02:08 Order name: O2 Sat Monitoring; Complete Time: 02:15 rn EC:33 Rate is 82 beats/min. Rhythm is regular. QRS [place] is Normal. NM interval is normal. QRS rn interval is normal. QT interval is normal. No Q waves. T waves are Normal. No ST changes noted. Clinical impression: NSR w/ Non-specific ST/T Changes. Interpreted by me. Reviewed by me. Administered Medications: 02:14 Drug: HYDROmorphone IVP 1 mg IVP once Route: IVP; Site: right antecubital; cp4 02:46 Follow up: Response: No adverse reaction; Pain is unchanged, physician notified; RASS: kb3 Restless (+1) 02:14 Drug: Ondansetron IVP 4 mg IVP once; over 2 minutes Route: IVP; Site: right antecubital;cp4 02:46 Follow up: Response: No adverse reaction kb3 02:34 CANCELLED (Duplicate Order): fentanyl (pf)50 mcg IVP once rn 02:45 Drug: Famotidine IVP 20 mg IVP once; dilute with 10 mL 0.9% NaCl; give over 2 minutes kb3 Route: IVP; Site: right antecubital; 02:46 Follow up: Response: No adverse reaction kb3 02:45 Drug: fentaNYL (PF) IVP 100 mcg IVP once Route: IVP; Site: right antecubital; kb3 03:51 Follow up: Response: No adverse reaction; Pain is unchanged, physician notified; RASS: lg3 Alert and Calm (0) 03:51 Drug: fentaNYL (PF) IVP 100 mcg IVP once Route: IVP; Site: right antecubital; lg3 05:50 Follow up: Response: No adverse reaction lg3 03:56 Drug: Promethazine IVP 12.5 mg IVP once Route: IVP; Site: right antecubital; lg3 05:50 Follow up: Response: No adverse reaction; Marked relief of symptoms lg3 05:40 Drug: metroNIDAZOLE IVPB 500 mg 100 ml IVPB at 200 ml/hr once over 30 mins Volume: 100 lg3 ml; Route: IVPB; Rate: 200 ml/hr; Infused Over: 30 mins; Site: right antecubital; 06:31 Follow up: Response: No adverse reaction; IV Status: Completed infusion; IV Intake: lg3 100ml 05:47 Drug: morphine IVP or IV 4 mg IVP once over 4 mins Route: IVP; Infused Over: 4 mins; lg3 Site: right antecubital; 06:31 Drug: Ciprofloxacin IVPB 400 mg 200 ml IVPB once over 60 mins Volume: 200 ml; Route: lg3 IVPB; Infused Over: 60 mins; Site: right antecubital; Disposition Summary: 05/16/24 05:56 Hospitalization Ordered Notes: Hospitalization Status: Observation rn Provider: Rick Prado rn Condition: Stable rn Problem: new rn Symptoms: have improved rn Bed/Room Type: Standard rn Location: Telemetry/MedSur (Inpatient)(05/16/24 16:39) [facility] Room Assignment: [facility](05/16/24 16:39) [facility] Diagnosis - Acalculous Cholecystitis rn - Chest pain, unspecified rn Forms: - Medication Reconciliation Form rn - SBAR form rn - Leadership Thank You Letter rn Signatures: Dispatcher [employer] EDMS Maximino Alonso MD MD cha Nieto, Roman, MD MD rn Able, Lacie, RN RN lg3 Sirena Bustamante RN RN [email or web address] Justina Walker 6 Charlene Bright cp4 Corrections: (The following items were deleted from the chart) 02:09 02:09 BASIC METABOLIC PANEL+C.LAB.BRZ ordered. EDMS EDMS 02:09 02:09 CBC+H.LAB.BRZ ordered. EDMS EDMS 02:09 02:09 HEPATIC FUNCTION+C.LAB.BRZ ordered. EDMS EDMS 02:09 02:09 PROBNP+C.LAB.BRZ ordered. EDMS EDMS 02:09 02:09 PROTIME (+INR)+COAG.LAB.BRZ ordered. EDMS EDMS 02:09 02:09 Troponin High Sensitivity+C.LAB.BRZ ordered. EDMS EDMS 02:34 02:19 fentaNYL (PF) IVP 50 mcg IVP once ordered. rn rn 03:19 03:19 Abdomen Limited+US.RAD.BRZ ordered. EDMS EDMS 08:27 05:56 Telemetry/MedSurg (observation) rn kb3 08:27 05:56 rn kb3 14:28 14:28 POTASSIUM+C.LAB.BRZ ordered. EDMS EDMS 14:31 08:[address] [facility] ER HOLD kb3 bc6 14:31 08:27 ERHOLD- kb3 bc6 14:41 14:31 403 bc6 bc6 14:42 14:31 Telemetry/MedSurg (Inpatient) bc6 kb3 14:42 14:41 bc6 kb3 16:39 14:[address] [facility] ER HOLD kb3 bc6 16:39 14:42 ERHOLD- kb3 bc6
--- NOTE | 2024-05-16 05:56 | ER ---
Nurse's Notes [facility] Name: Jerry Toney Age: 39 yrs Sex: Male : 1985 Arrival Date: 05/16/2024 Time: 02:05 Bed 9 Private MD: Diagnosis: Acalculous Cholecystitis;Chest pain, unspecified Presentation: 05/16 02:15 Chief complaint: Patient states: CP/SOB/Vomiting onset 0000. Coronavirus screen: Client lg3 denies travel out of the [place] in the last 14 days. At this time, the client does not indicate any symptoms associated with coronavirus-19. Ebola Screen: No symptoms or risks identified at this time. Initial Sepsis Screen: Does the patient meet any 2 criteria? No. Patient's initial sepsis screen is negative. Does the patient have a suspected source of infection? No. Patient's initial sepsis screen is negative. Risk Assessment: Do you want to hurt yourself or someone else? Patient reports no desire to harm self or others. Onset of symptoms was May 16, 2024. 02:15 Method Of Arrival: Wheelchair lg3 02:15 Acuity: JOVAN 3 lg3 Triage Assessment: 02:16 General: Appears distressed, uncomfortable, Behavior is restless. Pain: Complains of lg3 pain in chest Pain radiates to back Pain currently is 10 out of 10 on a pain scale. Pain began 2 hours ago. Noted to be grimacing, guarding, moaning, restless, Also complains of nausea, shortness of breath. EENT: No deficits noted. No signs and/or symptoms were reported regarding the EENT system. Neuro: [place] Agitation-Sedation Scale (RASS): +1 Restless Level of Consciousness is awake, alert, obeys commands, Oriented to person, place, time, situation. Cardiovascular: Reports chest pain, nausea, shortness of breath, Heart tones S1 S2 present Capillary refill < 3 seconds Clubbing of nail beds is absent JVD is absent Patient's skin is warm and dry. Rhythm is sinus rhythm. Respiratory: Reports shortness of breath Airway is patent Respiratory effort is even, pursed lip, shallow, Breath sounds are clear bilaterally. GI: No deficits noted. No signs and/or symptoms were reported involving the gastrointestinal system. Abdomen is flat, non-distended, Abd is soft and non tender X 4 quads. : No signs and/or symptoms were reported regarding the genitourinary system. Derm: No signs and/or symptoms reported regarding the dermatologic system. Skin is intact, is healthy with good turgor, Skin is diaphoretic, Skin is normal, Skin temperature is cool. Musculoskeletal: No deficits noted. Circulation, motion, and sensation intact. Range of motion: intact in all extremities. Historical: - Allergies: 02:16 PENICILLINS; lg3 - Home Meds: 02:16 Flomax 0.4 mg Oral cp24 1 cap once daily [Active]; Lisinopril Oral [Active]; unknown lg3 high cholesterol med [Active]; - PMHx: 02:16 Kidney stones; Hypertensive disorder; Hypercholesterolemia; lg3 - PSHx: 02:16 Appendectomy; Lithotripsy; lg3 - Immunization history:: Adult Immunizations up to date. - Infectious Disease History:: Denies. - Social history:: Smoking status: Patient denies any tobacco usage or history of. Patient uses alcohol, occasionally. Patient/guardian denies using IV drugs. - Family history:: not pertinent. - Hospitalizations: : No recent hospitalization is reported. Screenin:21 [facility] ED Fall Risk Assessment (Adult) History of falling in the last 3 months, lg3 including since admission No falls in past 3 months (0 pts) Confusion or Disorientation No (0 pts) Intoxicated or Sedated No (0 pts) Impaired Gait No (0 pts) Mobility Assist Device Used No (0 pt) Altered Elimination No (0 pt) Score/Fall Risk Level 0 - 2 = Low Risk Oriented to surroundings, Maintained a safe environment, Educated pt \T\ family on fall prevention, incl call for assistance when getting out of bed, Assessed \T\ reinforced patient's understanding of fall precautions. Abuse screen: Denies threats or abuse. Denies injuries from another. Nutritional screening: No deficits noted. Tuberculosis screening: No symptoms or risk factors identified. Assessment: :21 General: see triage assessment. lg3 03:12 Reassessment: Patient appears in no apparent distress at this time. Patient and/or lg3 family updated on plan of care and expected duration. Pain level reassessed. Patient is alert, oriented x 3, equal unlabored respirations, skin warm/dry/pink. Patient states feeling better. Patient states symptoms have improved. 05:03 Reassessment: Patient appears in no apparent distress at this time. Patient and/or lg3 family updated on plan of care and expected duration. Pain level reassessed. Patient is alert, oriented x 3, equal unlabored respirations, skin warm/dry/pink. Patient states feeling better. Patient states symptoms have improved. 07:11 Reassessment: Patient and/or family updated on plan of care and expected duration. Pain ap3 level reassessed. Patient is alert, oriented x 3, equal unlabored respirations, skin warm/dry/pink. General: Appears in no apparent distress. comfortable, Behavior is calm, cooperative, appropriate for age. Neuro: Level of Consciousness is awake, alert, obeys commands, Oriented to person, place, time, situation, Appropriate for age. Cardiovascular: Patient's skin is warm and dry. Respiratory: Airway is patent Respiratory effort is even, unlabored, Respiratory pattern is regular, symmetrical. Vital Signs: 02:15 BP 158 / 103; Pulse 84; Resp 19 S; Temp 98.1(O); Pulse Ox 100% on 2 lpm NC; Weight lg3 95.25 kg (R); Height 5 ft. 11 in. (R); Pain 10/10; 02:45 BP 142 / 84; Pulse 80; Resp 23; vk 03:30 BP 126 / 67; Pulse 63; Resp 11; Pulse Ox 100% on R/A; rv1 05:03 BP 136 / 80; Pulse 60; Resp 15 S; Pulse Ox 100% on 2 lpm NC; lg3 02:15 Body Mass Index 29.29 (95.25 kg, 180.34 cm) lg3 02:15 Pain Scale: Adult lg3 ED Course: 02:07 Patient arrived in ED. rn 02:08 Yobany Garcia MD is Attending Physician. rn 02:11 Radiology exam delayed due to lab results not completed at this time. (BUN/Creatinine) jc4 IV insertion attempt and/or patient not having appropriate IV at this time. 02:16 Triage completed. lg3 02:16 Arm band placed on right wrist. lg3 02:21 Patient has correct armband on for positive identification. Placed in gown. Bed in low lg3 position. Call light in reach. Side rails up X 1. Client placed on continuous cardiac and pulse oximetry monitoring. NIBP monitoring applied. monitoring specialist on. Door closed. Noise minimized. Warm blanket given. Pillow given. Family accompanied patient. 02:21 Initial lab(s) drawn, by ED staff, sent to lab. EKG done, by ED staff, reviewed by lg3 Yobany Garcia MD. Inserted saline lock: 20 gauge in right antecubital area, using aseptic technique. Blood collected. Flushed with 10 mL NS. Oxygen administration via nasal cannula \T\ 2L/min. 02:42 XRAY Chest (1 view) In Process Unspecified. EDMS 03:14 CT Aorta for Dissection In Process Unspecified. EDMS 03:48 US Abdomen Limited In Process Unspecified. EDMS 05:03 Roseanne Perkins, RN is Primary Nurse. lg3 05:50 Rick Prado MD is Hospitalizing Provider. rn 07:12 No provider procedures requiring assistance completed. ap3 10:55 Patient admitted, IV remains in place. ap3 10:56 Provided Education on: medications prior to administration . ap3 Administered Medications: 02:14 Drug: HYDROmorphone IVP 1 mg IVP once Route: IVP; Site: right antecubital; cp4 02:46 Follow up: Response: No adverse reaction; Pain is unchanged, physician notified; RASS: kb3 Restless (+1) 02:14 Drug: Ondansetron IVP 4 mg IVP once; over 2 minutes Route: IVP; Site: right antecubital;cp4 02:46 Follow up: Response: No adverse reaction kb3 02:34 CANCELLED (Duplicate Order): fentanyl (pf)50 mcg IVP once rn 02:45 Drug: Famotidine IVP 20 mg IVP once; dilute with 10 mL 0.9% NaCl; give over 2 minutes kb3 Route: IVP; Site: right antecubital; 02:46 Follow up: Response: No adverse reaction kb3 02:45 Drug: fentaNYL (PF) IVP 100 mcg IVP once Route: IVP; Site: right antecubital; kb3 03:51 Follow up: Response: No adverse reaction; Pain is unchanged, physician notified; RASS: lg3 Alert and Calm (0) 03:51 Drug: fentaNYL (PF) IVP 100 mcg IVP once Route: IVP; Site: right antecubital; lg3 05:50 Follow up: Response: No adverse reaction lg3 03:56 Drug: Promethazine IVP 12.5 mg IVP once Route: IVP; Site: right antecubital; lg3 05:50 Follow up: Response: No adverse reaction; Marked relief of symptoms lg3 05:40 Drug: metroNIDAZOLE IVPB 500 mg 100 ml IVPB at 200 ml/hr once over 30 mins Volume: 100 lg3 ml; Route: IVPB; Rate: 200 ml/hr; Infused Over: 30 mins; Site: right antecubital; 06:31 Follow up: Response: No adverse reaction; IV Status: Completed infusion; IV Intake: lg3 100ml 05:47 Drug: morphine IVP or IV 4 mg IVP once over 4 mins Route: IVP; Infused Over: 4 mins; lg3 Site: right antecubital; 06:31 Drug: Ciprofloxacin IVPB 400 mg 200 ml IVPB once over 60 mins Volume: 200 ml; Route: lg3 IVPB; Infused Over: 60 mins; Site: right antecubital; Medication: 02:21 VIS not applicable for this client. lg3 Intake: 06:31 IV: 100ml; Total: 100ml. lg3 Outcome: 05:56 Decision to Hospitalize by Provider. rn 10:55 Admitted to ER Hold. Please see [facility] for further documentation. ap3 10:55 Condition: good 10:55 Instructed on the need for admit, 16:52 Patient left the ED. ap3 Signatures: Dispatcher [employer] EDMS Yobany Garcia MD MD rn Prokisch, Amanda, RN RN ap3 Roseanne Perkins RN RN lg3 Sirena Bustamante RN RN kb3 Floridalma Eaton1 Charlene Bright 4 Jayde Horan Justin jc4
--- NOTE | 2024-05-16 07:29 | P.HP ---
Certification for Inpatient Patient admitted to: Inpatient Practitioner: I am a practitioner with admitting privileges, knowledge of patient current condition, hospital course, and medical plan of care. Services: Services provided to patient in accordance with Admission requirements found in Title 42 Section 412.3 of the Code of Federal Regulations Patient History Date of Service: 05/16/24 History of Present Illness: 39-year-old male with a past medical history of hypertension, hyperlipidemia, kidney stones, presents to the emergency room with chest pain. He reports chest pain is substernal, radiates to the back, he reports symptoms are 10 out of 10, no reported nausea vomiting, he reports pain improved with morphine. Dilaudid, fentanyl was not very effective. He reports taking an acids at home that were unaffected. He denies similar symptoms in the past. No reported fever, nausea vomiting, recent infection, shortness of breath, Plan to admit for Acalculous Cholecystitis, Chest pain unspecified, hepatic steatosis with transaminitis, unspecified, surgery and GI to consult. ER evaluation 5 BP 158 / 103; Pulse 84; Resp 19 S; Temp 98.1(O); Pulse Ox 100% on 2 lpm NC; Weight 95.25 kg (R); Height 5 ft. 11 in. (R); Pain 10/10; EKG s 82 beats/min. Rhythm is regular. QRS [place] is Normal. [place] interval is normal. QRS rn interval is normal. QT interval is normal. No Q waves. T waves are Normal. No ST changes noted. Clinical impression: NSR w/ Non-specific ST/T Changes. Chest x-ray no acute findings, abdominal ultrasound 1. Mildly distended gallbladder with possible small amount of sludge. No shadowing gallstones or significant gallbladder wall thickening.2. Hepatic steatosis. CT dissection 1. No aortic aneurysm or dissection.2. No acute inflammatory process in the chest, abdomen and pelvis. 3. Nonobstructive bilateral nephrolithiasis.4. Mild splenomegaly. Laboratory evaluation no leukocytosis, no left shift, hypokalemia 2.6 replaced, acute kidney injury BUN 28 creatinine 1.31, transaminitis, AST 52, ALT 85 Allergies Penicillins Allergy (Unknown, Verified 06/20/11 09:25) Anaphylaxis Home Medications: Tamsulosin [Flomax*] 1 cap PO DAILY 06/28/16 - Past Medical/Surgical History Diabetic: No -: kidney stones -: Hypertension -: Hyperlipidemia -: Hepatic steatosis -: lithotripsy to left and right side -: 3 thumb surg -: appendectomy -: kidney stents - Social History Alcohol use: Yes CD- Drugs: No Caffeine use: Yes Place of Residence: Home Review of Systems 10-point ROS is otherwise unremarkable Physical Examination - Physical Exam General: Alert, Oriented x3, Mild distress HEENT: Atraumatic, Normocephalic, PERRLA Neck: Supple, JVD not distended Respiratory: Clear to auscultation bilaterally, Normal air movement Cardiovascular: Normal pulses, Regular rate/rhythm, Normal S1 S2 Capillary refill: <2 Seconds Gastrointestinal: Normal bowel sounds, Other (right upper quadrant and tenderness) Musculoskeletal: No swelling, No contractures Integumentary: No breakdown, No significant lesion Neurological: Normal speech, Normal strength at 5/5 x4 extr, Cranial nerves 3-12 intact - Studies Laboratory Data (last 24 hrs) 05/16/24 05/16/24 05/16/24 02:20 02:10 02:10 WBC 8.60 Hgb 17.5 Hct 49.1 H Plt Count 274 PT 10.8 INR 1.03 Sodium 136 Potassium 2.6 L* BUN 20 H Creatinine 1.31 H Glucose 91 Total Bilirubin 0.9 AST 52 H ALT 85 H Alkaline Phosphatase 64 Assessment and Plan - Problems (Diagnosis) (1) Acalculous cholecystitis Current Visit: Yes Status: Acute (2) Intractable abdominal pain Onset Date: 06/28/16 Current Visit: No Status: Acute (3) Chest pain, unspecified Current Visit: Yes Status: Acute Qualifiers: Chest pain type: unspecified Qualified Code(s): R07.9 - Chest pain, unspecified (4) Hepatic steatosis Current Visit: Yes Status: Acute (5) Transaminitis Current Visit: Yes Status: Acute - Plan Assessment Acalculous Cholecystitis Intractable abdominal pain likely secondary to cholecystitis admit to [facility], GI to consult N.p.o., IV Metronidazole, ciprofloxacin as needed antiemetics, as needed analgesics, (Dilaudid, fentanyl and affective) controlled better with morphine abdominal ultrasound 1. Mildly distended gallbladder with possible small amount of sludge. No shadowing gallstones or significant gallbladder wall thickening.2. Hepatic steatosis. CT dissection 1. No aortic aneurysm or dissection.2. No acute inflammatory process in the chest, abdomen and pelvis.3. Nonobstructive bilateral nephrolithiasis.4. Mild splenomegaly chest pain unspecified trend troponin, telemetry ER evaluation 5 BP 158 / 103; Pulse 84; Resp 19 S; Temp 98.1(O); Pulse Ox 100% on 2 lpm NC; Weight 95.25 kg (R); Height 5 ft. 11 in. (R); Pain 10/10; EKG s 82 beats/min. Rhythm is regular. QRS [place] is Normal. [place] interval is normal. QRS rn interval is normal. QT interval is normal. No Q waves. T waves are Normal. No ST changes noted. Clinical impression: NSR w/ Non-specific ST/T Changes. Chest x-ray no acute findings, Hepatic steatosis Liver enzymes, Follow-up with GI after discharge acute kidney injury BUN 28 creatinine 1.31, transaminitis, AST 52, ALT 85 hepatitis panel Hypokalemia Trend electrolytes replace as needed Electrolyte protocol Laboratory evaluation no leukocytosis, no left shift, hypokalemia 2.6 replaced, Full code DVT SCDs Diet n.p.o. Disposition Home independent prior . Discharge Plan: Home - Advance Directives Does patient have a Living Will: No Does patient have a Durable POA for Healthcare: No - Code Status/Comfort Care Code Status: Full Code Critical Care: No Time Spent Managing Pts Care (In Minutes): 55
[2024-05-16] MEDS: ONDANSETRON 4 MG/2 ML VIAL IV ONE (07:45)
--- NOTE | 2024-05-16 07:57 | RAD REPORT ---
EXAM DESCRIPTION: Abdomen Exam Limited RadLex: US ABDOMEN LIMITED CLINICAL HISTORY: 39 years Male, ABD PAIN COMPARISON: CT same date. FINDINGS: Limited abdominal ultrasound performed to assess the gallbladder. No shadowing gallstones identified. Gallbladder is mildly distended. Gallbladder wall significantly thickened. There may be small amount of layering sludge. Common duct measures up to 0.4 cm, within normal limits partially visualiz ed hepatic steatosis. IMPRESSION: 1. Mildly distended gallbladder with possible small amount of sludge. No shadowing gallstones or si gnificant gallbladder wall thickening. 2. Hepatic steatosis. Electronically signed by: Veronica Lyon MD 05/16/2024 06:02 AM CODING EDUCATOR Due to temporary technical issues with the PACS/Expreem reporting system, reports are being abdirashid d by the in-house radiologist without review as a courtesy to ensure prompt reporting the interpreting radiologist is fully responsible for the content of the report. Transcribed Date/Time: 05/16/2024 7:56 AM
[2024-05-16] MEDS: POTASSIUM 25 MEQ EFFERV TAB PO ONE (08:00)
[2024-05-16] MEDS: KCL 20 MEQ/100 mL IVPB 20 MEQ/100 ML BAG IV SCH ×3 (08:00→23:06)
[2024-05-16] MEDS: NA CHLORIDE 0.9% 1,000 ML IV SCH (08:00)
[2024-05-16] MEDS ORDERED: NA CHLORIDE 0.9% 1,000 ML ONE (08:14)
[2024-05-16] MEDS ORDERED: POTASSIUM 25 MEQ EFFERV TAB ONE (08:14)
[2024-05-16] MEDS ORDERED: KCL 20 MEQ/100 mL IVPB 200 ML IV ONE (08:14)
[2024-05-16] MEDS ORDERED: SODIUM CHLORIDE 0.9% 10ML INJ IV PRN (09:18)
[2024-05-16] MEDS: MORPHINE 4 MG/ML SYR IV PRN (10:15)
--- NOTE | 2024-05-16 11:25 | EKG ---
Test Date: 2024-05-16 Test Time: 02:49:01 Trial Manager: RV MEASUREMENT RESULTS: Intervals: Rate: 62 AL: 128 QRSD: 74 QT: 418 QTc: 424 [place]: P: 6 AL: 128 QRS: 83 T: 30 INTERPRETIVE STATEMENTS: Normal sinus rhythm Normal ECG Compared to ECG 05/19/2012 21:29:12 No significant changes Electronically Signed On 05-16-24 11:24:11 [employer] by Adam Rosen
[2024-05-16] MEDS: METRONIDAZOLE 500mg IVPB 500 MG/100 ML BAG IV SCH (14:00)
[2024-05-16] MEDS ORDERED: LIDOCAINE 1% MPF 5 ML VIAL ONE (14:21)
[2024-05-16] MEDS ORDERED: propofoL 200 MG/20 ML VIAL IV ONE (14:21)
[2024-05-16] MEDS ORDERED: ROCURONIUM 50 MG/5 ML VIAL IV ONE (14:21)
[2024-05-16] MEDS ORDERED: MIDAZOLAM HCL 2 MG/2 ML INJ ONE (14:21)
[2024-05-16 15:10] LABS: Anion Gap 4.6 mEq/L (5.0-15.0); Magnesium 1.8 mg/dL (1.6-2.4); Potassium 3.6 mEq/L (3.5-5.1); Troponin High Sensitivity 4.7 pg/mL (<58.9)
[2024-05-16] MEDS: ONDANSETRON 4 MG/2 ML VIAL IV PRN (15:27)
[2024-05-16] MEDS: CIPROFLOXACIN 400mg IV 400 MG/200 ML BAG IV SCH (17:46)
--- NOTE | 2024-05-16 19:36 | CON ---
Date of Consultation: 05/16/2024 Diagnoses: Acute cholecystitis, symptomatic cholelithiasis. History Of Present Illness: This is the case of a 39-year-old patient who comes to us with 2-1/2 day s history of abdominal pain, epigastric and right upper quadrant, radiating to the back associated wi th nausea and bloating. He denies any prior episode. He denies any dysuria, hematuria, hematochezia , melena. Denies any recent travel out of the country. Denies any family member sick at home. He c an eat anything and has no appetite at this moment. Obviously, the medical service seen the patient and trying to do the cardiac workup as a routine evaluation. We know this patient and the family fro m before. The family has some history also of gallbladder disease. He has sludge, which is gravel, tiny stones in the gallbladder and significant gallbladder thickening. If you read the report of the ultrasound and the conclusions, may defer because there is a typo in that area. Please refer to mariann doe. Allergies: PENICILLIN. Medications: Flomax. Past Medical History: Include kidney stones, hypertension. Past Surgical History: Surgeries include appendectomy, kidney stent. Social History: He does not smoke. He does not drink alcohol. Review of Systems: See HPI. Ten points otherwise unremarkable. Physical Examination: General: Patient is awake, alert, oriented x3. HEENT: Pupils are equal and reactive. Anicteric. Neck: Supple. Chest: Clear. Heart: S1, S2. Abdomen: Epigastric right upper quadrant pain with Luna sign positive. Genitalia: Deferred. Extremities: Good capillary refill. Laboratory Data: Blood work shows WBC count of 8.6, hemoglobin of 17.5. INR is 1.03. Potassium is 2.6, bicarb is 32, total bilirubin of 0.9, AST and ALT of 52 and 85, alkaline phosphate of 64. The u ltrasound of the gallbladder shows gallbladder wall significantly thickened with sludge present. Gal lbladder distention. Assessment: This is a 39-year-old patient who comes to us with Lnua sign positive, cholecystitis, right upper quadrant abdominal pain. It has been going on like for 3 days already. When you see the gallbladder ultrasound, it shows significant gallbladder wall thickening with sludge present and gal lbladder distention. He says it is just getting worse. So, we offered him different options that in clude laparoscopic, possible open cholecystectomy versus antibiotics. He wants laparoscopic possible open cholecystectomy after fully explaining the benefits, alternatives, and risks including, but not limited to infection, bleeding, damage to adjacent structures, anesthesia complication, NC, and even . He also understands a chance of choledocholithiasis, pancreatitis. He was advised the impor tance of losing some weight. We discussed the case, booked the patient in OR, but due to low potassi um, Anesthesia believes it is unsafe today to proceed with the surgery, so they do not want to procee d with surgery. He has been replacing potassium nice and slow, but enough to get to that level. Unt il we have anesthesia clearance, we will not be able to proceed. The patient understands that. We w ill follow the patient clinically overnight and see where he is, and tomorrow, we will re-evaluate on ce again the options and discuss once again his surgical versus nonsurgical options. SANJEEV/QUINCY Voice ID: [id number] Report ID: [id number]
[2024-05-16] MEDS: PANTOPRAZOLE 40 MG INJ IVP SCH (20:30)
[2024-05-17] MEDS: CIPROFLOXACIN 400mg IV 400 MG/200 ML BAG IV SCH (05:51)
[2024-05-17 07:08] LABS: Absolute Basophils 0.1 K/uL (0-0.5); Absolute Eosinophils 0.1 K/uL (0-0.5); Absolute Lymphocytes (CBC) 2.6 K/uL (0.7-4.9); Absolute Monocytes 0.6 K/uL (0.1-1.3); Basophils % 0.9 % (0-1.3); Eosinophils % 1.6 % (0-4.4); Hematocrit 41.1 % (39.6-49.0); Hemoglobin 14.2 g/dL (13.6-17.9); Lymphocytes % 40.7 % (15.3-44.8); MCH 30.9 pg (27.0-35.0); MCHC 34.6 g/dL (32.0-36.0); MCV 89.4 fL (80-100); MPV 6.9 fL (7.6-11.3); Monocytes % 9.6 % (3.3-12.3); Neutrophils % 47.2 % (41.7-73.7); Nucleated Red Blood Cells % 0.2 % (0-0); Platelets 231 thou/uL (152-406); Red Cell Distribution Width 13.5 % (12.1-15.2)
[2024-05-17 07:14] LABS: Albumin 3.6 g/dL (3.4-5.0); Albumin/Globulin Ratio 1.2 (1.1-1.8); Anion Gap 3.1 mEq/L (5.0-15.0); Bilirubin Total 0.9 mg/dL (0.2-1.0); Magnesium 1.9 mg/dL (1.6-2.4); Potassium 4.1 mEq/L (3.5-5.1); Protein, Total 6.6 g/dL (6.4-8.2)
[2024-05-17 09:06] LABS: Hepatitis B Core IgM Nonreactive (Nonreactive); Hepatitis B surface AG Interp. Nonreactive (Nonreactive); Hepatitis C Virus Ab Nonreactive (Nonreactive)
[2024-05-17 09:07] LABS: HBsAG Nonreactive Report Report
[2024-05-17 10:37] VITALS: BMI 28.7
[2024-05-17] MEDS ORDERED: NEOSTIGMINE 1 MG/ML -10 ML VIAL ONE (11:22)
[2024-05-17] MEDS ORDERED: propofoL 200 MG/20 ML VIAL IV ONE (11:22)
[2024-05-17] MEDS ORDERED: ONDANSETRON 4 MG/2 ML VIAL ONE (11:22)
[2024-05-17] MEDS ORDERED: GLYCOPYRROLATE 0.2 MG/ML SYR ONE (11:22)
[2024-05-17] MEDS ORDERED: FENTANYL CITR 100 MCG/2 ML ONE ×2 (11:25→13:35)
[2024-05-17] MEDS ORDERED: MIDAZOLAM HCL 2 MG/2 ML INJ ONE ×2 (11:27→13:18)
[2024-05-17] MEDS ORDERED: LIDOCAINE 2% MPF 5 ML VIAL ONE (11:32)
[2024-05-17] MEDS ORDERED: ROCURONIUM 50 MG/5 ML VIAL IV ONE (11:32)
[2024-05-17] MEDS: Ringers Lactate 1,000 ML IV ONE (11:57)
[2024-05-17] MEDS ORDERED: EPHEDRINE SULF 50 MG/ML VIAL ONE (13:35)
[2024-05-17] MEDS ORDERED: MEPERIDINE HCL 25 MG/ML SYR ONE (14:27)
[2024-05-17] MEDS: HYDROMORPHONE HCL 1 MG/ML INJ ONE ×2 (15:04→15:22)
[2024-05-17] MEDS: MEPERIDINE HCL 25 MG/ML SYR ONE (15:06)
[2024-05-17] MEDS: ONDANSETRON 4 MG/2 ML VIAL ONE (15:20)
--- NOTE | 2024-05-17 15:23 | P.PN ---
Subjective Date of Service: 05/17/24 Chief Complaint: LARRY/RUQ pain, N/V, acute cholecystitis, s/p lap layla in PACU Subjective: Improving (s/p lap layla in PACU) Review of Systems 10-point ROS is otherwise unremarkable General: Weakness Gastrointestinal: Nausea, Abdominal Pain Physical Examination - Vital Signs Temperature: 97 F Blood Pressure: 143/86 Pulse: 87 Respirations: 16 Pulse Ox (%): 99 Assessment And Plan - Current Problems (Diagnosis) (1) Acute cholecystitis Current Visit: Yes Status: Acute (2) Epigastric abdominal pain Current Visit: Yes Status: Acute (3) RUQ abdominal pain Current Visit: Yes Status: Acute (4) Nausea & vomiting Current Visit: Yes Status: Acute - Plan REC: 1) diet as per surgery 2) IVFs and IV antibiotics 3) prn pain meds and anti-emetics
--- NOTE | 2024-05-17 15:37 | P.BOP ---
Preoperative diagnosis: acute cholecystitis, symtomatic cholecystitis ( sludge) Postoperative diagnosis: same Primary procedure: Laparoscopic cholecystectomy Estimated blood loss: <20cc Specimen: gb Findings: inflammed thickwall distended gallbladder Anesthesia: General Complications: None Transferred to: Recovery Room Condition: Good
[2024-05-17] MEDS ORDERED: HYDROCODONE/APAP 5/325 MG TAB PO PRN (15:40)
--- NOTE | 2024-05-18 00:12 | CON ---
Date of Consultation: 05/16/2024 Reason For Consultation: Midepigastric right upper quadrant pain with nausea, vomiting, and cholecys titis. History Of Present Illness: The patient is a 39-year-old white male with history of hypertension, hy perlipidemia, kidney stones, presented to the hospital with acute midepigastric pain, severe, radiati ng to right upper quadrant as well. Associated with nausea, vomiting. Ultrasound revealed distended gallbladder with possible small amount of sludge and some wall thickening was noted as well by amaury vasquez. The patient was admitted to the hospital for further evaluation and care. Surgery has seen the patient. Plan is for probable laparoscopic cholecystectomy. Past Medical History: Significant for hypertension, hyperlipidemia, kidney stones, fatty liver, mild obesity. Home Medications: Include Flomax. I think possible testosterone too. Allergies: PENICILLIN. Past Surgery History: He has lithotripsy, left and right side; 3 thumb surgeries; appendectomy; and kidneys stents. Social History: He is single, never . 1 child. No tobacco. Occasional alcohol. Family History: Father is alive and well. Mother has diabetes, hypertension, and fatty liver. Review of Systems: The patient has midepigastric greater right upper quadrant pain, nausea, vomiting. Denies hematemesi s, coffee-ground emesis, hematuria, dysuria, polydipsia, muscle aches, joint aches, backaches, melena , hematochezia, chest pain, shortness of breath, seizure, syncope, depression, or anxiety. Physical Examination: Vital Signs: The patient is 5 feet 11, pounds, BMI 28 kg/sq m. He has temperature 98.5 d egrees Fahrenheit, pulse 60, respirations 15, blood pressure 120/84, O2 sat 100% on room air. General: Well-nourished, well-developed, slightly obese male, lying in bed, in no acute distress. HEENT: Normocephalic, atraumatic. Anicteric. Pupils equal, round, and reactive to light. Extraocu lar movements are intact. Oropharynx is clear. Neck: Supple. No masses. Respirations: Clear to auscultation bilaterally. Cardiac: Regular rate and rhythm. Gastrointestinal: Positive bowel sounds. Hypoactive. Soft, nondistended, mildly obese. Pain in midepigastric right upper quadrant. Positive Luna sign. No hepatosplenomegaly. No rebound. Extremities: No clubbing, cyanosis, or edema. 2+ pulses. Neuro: Alert and oriented x3. Grossly nonfocal. 5/5 motor. Sensation intact to light touch. Laboratory Data: The patient has a white count of 8.6, hemoglobin of 17.5, hematocrit of , MCV of 88, platelet count 274, polys of 49%, lymphocytes 36%, monocytes 13%, eosinophils 1%. The pa tietristan has a PT of 10.8, INR of 1.0. Sodium 130, potassium 2.6, chloride 104, bicarb 33, BUN of 15, c reatinine of 1.1, glucose 99, calcium 9.0. Magnesium 1.8. Total bilirubin 0.9, direct bilirubin 0. 3, indirect bilirubin 0.6, AST of 52, ALT of 85, alkaline phosphatase 64. Troponin I 5.7. B-type na triuretic P 70, peptide 19. Total protein 8.6, albumin 4.6. Globulin 4.0. Hepatitis A, B, C are ne gative. Ultrasound revealed hepatic steatosis and there is mildly distended gallbladder with possibl e small amount of sludge. No revealed gallbladder distended. No pericholecystic fluid. Impression: 1. Acute cholecystitis, right upper midepigastric pain, nausea, vomiting. The patient denies any fev ers, chills, but he does have sludge in gallbladder with distended gallbladder and positive Luna si gn. 2. History of hypertension. 3. Hyperlipidemia. 4. Fatty liver. 5. Others per above. Recommendations: 1. Proceed with laparoscopic cholecystectomy as per surgery. 2. Continue IV fluids, IV antibiotics. 3. Continue p.r.n. pain meds, antiemetics. 4. We will follow along. CHAMP/QUINCY Voice ID: [id number] Report ID: [id number]
[2024-05-18 07:50] LABS: Absolute Monocytes 0.7 K/uL (0.1-1.3); Absolute Neutrophil 9.8 K/uL (1.8-8.0); Basophils % 0.1 % (0-1.3); Hematocrit 40.5 % (39.6-49.0); Hemoglobin 14.2 g/dL (13.6-17.9); Lymphocytes % 8.5 % (15.3-44.8); MCH 31.2 pg (27.0-35.0); MCV 89.3 fL (80-100); MPV 6.9 fL (7.6-11.3); Monocytes % 5.9 % (3.3-12.3); Neutrophils % 85.5 % (41.7-73.7); Platelets 242 thou/uL (152-406); RBC Red Blood Cell Count 4.54 M/uL (4.33-5.43); Red Cell Distribution Width 13.5 % (12.1-15.2)
[2024-05-18 08:05] LABS: Albumin 3.7 g/dL (3.4-5.0); Albumin/Globulin Ratio 1.1 (1.1-1.8); Anion Gap 7.6 mEq/L (5.0-15.0); Bilirubin Total 0.7 mg/dL (0.2-1.0); Globulin 3.3 g/dL (2.3-3.5); Magnesium 1.9 mg/dL (1.6-2.4); Potassium 3.6 mEq/L (3.5-5.1)
[2024-05-18 08:58] LABS: Blood Morphology Comment NOT SEEN (NOT SEEN); Platelet Estimate ADEQ; White Blood Cell Scan OK (OK)
[2024-05-18] MEDS: POTASSIUM CL SA 10 MEQ TAB PO ONE (10:00)
[2024-05-18] MEDS: HYDROCODONE/APAP 5/325 MG TAB PO PRN (10:02)
[2024-05-18 11:31] VITALS: O2SAT 100
--- NOTE | 2024-05-18 14:59 | P.PN ---
Subjective Date of Service: 05/18/24 Chief Complaint: LARRY/RUQ pain, N/V, acute cholecystitis, s/p lap layla in PACU Subjective: Improving (Decreased pain. Tolerating po diet, though some sudden day earlier today that has subsided.) Review of Systems 10-point ROS is otherwise unremarkable Gastrointestinal: Abdominal Pain Physical Examination - Vital Signs Temperature: 97.6 F Blood Pressure: 147/74 Pulse: 78 Respirations: 18 Pulse Ox (%): 98 - Physical Exam General: Alert, In no apparent distress, Oriented x3, Cooperative HEENT: Atraumatic, Normocephalic, PERRLA, EOMI Neck: Supple Respiratory: Normal air movement Cardiovascular: Normal pulses Gastrointestinal: No rebound, Tenderness, Guarding Neurological: Normal speech, Normal strength at 5/5 x4 extr Assessment And Plan - Current Problems (Diagnosis) (1) Acute cholecystitis Current Visit: Yes Status: Acute (2) Epigastric abdominal pain Current Visit: Yes Status: Acute (3) RUQ abdominal pain Current Visit: Yes Status: Acute (4) Nausea & vomiting Current Visit: Yes Status: Acute - Plan REC: 1) diet as per surgery 2) IVFs and IV antibiotics 3) prn pain meds and anti-emetics
[2024-05-18 17:39] VITALS: BP 138/68; TEMP 97.9
--- NOTE | 2024-05-22 22:40 | OP ---
Date of Procedure: 05/17/2024 Surgeon: Anthony Guerrero MD Preoperative Diagnoses: Acute cholecystitis, symptomatic cholelithiasis, sludge. Postoperative Diagnoses: Acute cholecystitis, symptomatic cholelithiasis, sludge. Procedure: Laparoscopic cholecystectomy. Estimated Blood Loss: Less than 20 cc. Specimen: Gallbladder. Findings: Inflamed, thickened, distended gallbladder. Anesthesia: General plus local. Indications: This is the case of a male who comes to us with intractable right upper quadrant pain. It has been like that 3 days prior to admission. Dr. Childers was involved in the case and me too. T he pain did not get better. We found some sludge in the gallbladder and some gallbladder wall thicke [place], so we offered him laparoscopic, possible open cholecystectomy with benefits, alternatives, and risks including, but not limited to, infection, bleeding, damage to adjacent structures, anesthesia c omplication, choledocholithiasis, bile leak, pancreatitis, [place], and even . He also understands t his may not relieve symptoms. He might need more than one surgical intervention. He understood and signed a consent. Procedure In Detail: The patient was brought to the operating room, placed in supine position. Anes thesia was done without complication. Abdominal area was prepped and draped in the usual sterile fas hion. Marcaine 0.5% was injected for local anesthetic, followed by sharp incision of the skin in the periumbilical region. Incision was carried down to fascia, which was opened under direct vision. P eritoneum was encountered, opened under direct vision. Vicryl #1 was placed inside the fascia. Miller on trocar was carefully introduced. Pneumoperitoneum was obtained. I placed 3 more trocars, 5 mm ea ch one of them, 1 in the epigastric area and 2 in the right upper quadrant using the same technique, which consisted of local anesthetic, sharp incision of the skin, and introduction of the trocars unde r direct vision. This allowed me to put a grasper in the fundus of the gallbladder, another grasper in the infundibulum, retracting the gallbladder in the inferolateral fashion, exposing the triangle o f [place], obtaining critical view. Cystic duct and cystic artery were clearly isolated and freed circ umferentially, and a connection between those and the gallbladder was clearly identified. I proceede d to ligate those by using at least 3 clips proximal and 1 clip distal, ligation done in the middle. Same was done with the cystic artery. I have to mention the gallbladder was thickened. We have to remove some omentum adhesions to the liver and to the gallbladder before doing this part. Once again , once the gallbladder was retracted in the inferolateral fashion, the cystic duct and cystic artery were clearly isolated and freed circumferentially, and a connection between those and the gallbladder was clearly identified. I proceeded to ligate those by using at least 3 clips proximal and 1 clip d istal, ligation in the middle. Same was done with the cystic artery. No bile leak. No bleeding. T he gallbladder was removed from liver using Bovie cauterizer and removed from the abdominal cavity us ing an Endo Catch through the umbilical incision. The area was inspected once again. No bile leak. No bleeding. At that moment, I proceeded to check the area that we took the adhesions down that the re was no bleeding. We proceeded to remove the trocars under direct vision. Deflated the pneumoperi toneum. Closed the fascia with #1 Vicryl, irrigated subcutaneous tissue and closed that with 3-0 chr omic, and the skin was approximated. Sponge count and instrument count were correct. The patient to lerated procedure well. The patient was sent to recovery in stable condition. SANJEEV/QUINCY Voice ID: [id number] Report ID: [id number]
== END 2024-05-18 16:45 | disposition home or self-care (01) | DRG 419 ==
LOC: ER 02:05 → ERHOLD 07:29 → 4TH 17:00
PROVIDERS: ADMIT Hospitalist; ATTEND Hospitalist
PROC: 0FT44ZZ Resection of Gallbladder, Percutaneous Endoscopic Approach (ICD-10-PCS; principal; 2024-05-17 13:15)
DX: K81.0 Acute cholecystitis (principal); E87.6 Hypokalemia; E78.00 Pure hypercholesterolemia, unspecified; I10 Essential (primary) hypertension; K76.0 Fatty (change of) liver, not elsewhere classified; Z88.0 Allergy status to penicillin; Z90.49 Acquired absence of other specified parts of digestive tract; Z79.899 Other long term (current) drug therapy
CPT/HCPCS: 36415; 71045; 71275; 74175; 76705; 80048; 80053; 80074; 80076; 82565; 83735; 83880; 84484; 85025; 85610; 88304; 93005; 94010; 96365; 96375; 99285; J0744; J1171; J2003; J2175; J2250; J2405; J2470; J2550; J2704; J2710; J3010; J3480; J7030; J7120; Q9967